=== PATIENT | female | born 1990 | race American Indian/Alaskan Native ===

== ENCOUNTER 2017-01-08 04:13 | Emergency (ER) | payer SELFPAY ==
[2017-01-08] MEDS ORDERED: REGLAN IV ONE (07:35)
--- NOTE | 2017-01-08 07:35 | Emergency Department Report ---
ED Headache HPI - General Chief Complaint: Headache Stated Complaint: HEADACHE, FEVER Time Seen by Provider: 01/08/17 07:20 - History of Present Illness Initial Comments: 26-year-old female past medical history sickle cell disease, chronic migraines presents with complaint of 2 days of anterior throbbing headache. Patient denies any fevers no neck rigidity no nausea. States that she typically gets slight photophobia with migraine headaches. States she was previously on migraine medicine but has not had any in a long time cannot specify how much time. Patient is fully lucid and awake alert and oriented 3 not in acute distress. States her headache is currently an 8 out of 10. Denies any prodrome or aura. Denies any earache sore throat no dysuria no chest pain no palpitations no shortness of breath reported. Denies any cough. Denies any recent travel. Denies any head trauma. No recent falls or direct head contusions. Patient is lucid and cooperative during exam. States she took some Motrin last night with minimal relief of her headache Timing/Duration: waxing and waning, other (2 days) Quality: mild Head Injury Location: frontal Recent Head Trauma: no recent headache/trauma Associated Symptoms: denies symptoms Allergies/Adverse Reactions: Allergies No Known Allergies Allergy (Verified 12/11/13 10:58) Home Medications: Ambulatory Orders Cyclobenzaprine [Flexeril 10mg] 10 mg PO TID PRN #20 tablet 12/11/13 Ibuprofen [Motrin 800 MG tab] 800 mg PO Q8H PRN #30 tablet 12/11/13 HYDROcodone/APAP 5-325 [[place] 5-325 mg TAB] 1 each PO Q6HR PRN #20 tablet Metoclopramide HCl [Reglan TAB] 5 mg PO TIDAC PRN #10 tablet 01/08/17 Naproxen [Naprosyn TAB] 500 mg PO BID PRN #25 tablet 01/08/17 ED Review of Systems ROS: Stated complaint: HEADACHE, FEVER Other details as noted in HPI Constitutional: denies: chills, fever Eyes: denies: eye pain, eye discharge, vision change ENT: denies: ear pain, throat pain Respiratory: denies: cough, shortness of breath, wheezing Cardiovascular: denies: chest pain, palpitations Endocrine: no symptoms reported Gastrointestinal: denies: abdominal pain, nausea, diarrhea Genitourinary: denies: urgency, dysuria, discharge Musculoskeletal: denies: back pain, joint swelling, arthralgia Skin: denies: rash, lesions Neurological: headache. denies: weakness, paresthesias Psychiatric: denies: anxiety, depression Hematological/Lymphatic: denies: easy bleeding, easy bruising ED Past Medical Hx - Past Medical History Previous Medical History?: Yes Hx Sickle Cell Disease: Yes - Surgical History Past Surgical History?: No - Social History Smoking Status: Never Smoker Substance Use Type: None - Medications Home Medications: Home Medications Medication Instructions Recorded Confirmed Last Taken Type Cyclobenzaprine [Flexeril 10mg] 10 mg PO TID PRN #20 tablet 12/11/13 Unknown Rx Ibuprofen [Motrin 800 MG tab] 800 mg PO Q8H PRN #30 tablet 12/11/13 Unknown Rx HYDROcodone/APAP 5-325 [[place] 1 each PO Q6HR PRN #20 tablet 07/15/14 Unknown Rx 5-325 mg TAB] Metoclopramide HCl [Reglan TAB] 5 mg PO TIDAC PRN #10 tablet 01/08/17 Unknown Rx Naproxen [Naprosyn TAB] 500 mg PO BID PRN #25 tablet 01/08/17 Unknown Rx ED Physical Exam - General Limitations: No Limitations General appearance: alert, in no apparent distress - Head Head exam: Present: atraumatic, normocephalic - Eye Eye exam: Present: normal appearance, PERRL, EOMI - ENT ENT exam: Present: mucous membranes moist - Neck Neck exam: Present: normal inspection - Respiratory Respiratory exam: Present: normal lung sounds bilaterally. Absent: respiratory distress - Cardiovascular Cardiovascular Exam: Present: regular rate, normal rhythm. Absent: systolic murmur, diastolic murmur, rubs, gallop - GI/Abdominal GI/Abdominal exam: Present: soft, normal bowel sounds - Extremities Exam Extremities exam: Present: normal inspection - Back Exam Back exam: Present: normal inspection - Neurological Exam Neurological exam: Present: alert, oriented X3, CN II-XII intact - Expanded Neurological Exam Expanded Patient oriented to: Present: person, place, time Cranial nerves: EOM's Intact: Normal Cerebellar function: Finger to Nose: Normal, Heel to Gavin: Normal, Romberg: Normal Sensory exam: Upper Extremity Light Touch: Normal, Lower Extremity Light Touch: Normal Motor strength exam: RUE: 5, LUE: 5, RLE: 5, LLE: 5 DTR: bicep (R): 3+, bicep (L): 3+, tricep (R): 3+, tricep (L): 3+, knee (R): 3+ , knee (L): 3+, ankle (R): 3+, ankle (L): 3+ Best Eye Response ([place]): (4) open spontaneously Best Motor Response ([place]): (6) obeys commands Best Verbal Response ([place]): (5) oriented [place] Total: 15 - Psychiatric Psychiatric exam: Present: normal affect, normal mood - Skin Skin exam: Present: warm, dry, intact, normal color. Absent: rash ED Course Vital Signs 01/08/17 04:16 Temperature 98.8 F Pulse Rate 84 Respiratory 18 Rate Blood Pressure 118/77 O2 Sat by Pulse 98 Oximetry ED Medical Decision Making - Lab Data Result diagrams: 01/08/17 07:39 01/08/17 07:39 - Medical Decision Making A/P: Migraine headache 1-patient states she felt significant relief of headache with one dose of Reglan 2-short course when necessary naproxen and Reglan 3-follow-up with primary care and outpatient neurology 4- patient's labs and CT are unremarkable. On clinical exam has no neurological deficits cranial nerves I through XII are grossly intact Critical care attestation.: If time is entered above; I have spent that time in minutes in the direct care of this critically ill patient, excluding procedure time. ED Disposition Clinical Impression: Migraine headache Qualifiers: Migraine type: without aura Status migrainosus presence: without status migrainosus Intractability: not intractable Qualified Code(s): G43.009 - Migraine without aura, not intractable, without status migrainosus Disposition: TO HOME OR SELFCARE Is pt being admited?: No Does the pt Need Aspirin: No Condition: Stable Instructions: Migraine Headache (ED) Prescriptions: Metoclopramide HCl [Reglan TAB] 5 mg PO TIDAC PRN #10 tablet PRN Reason: Headache Naproxen [Naprosyn TAB] 500 mg PO BID PRN #25 tablet PRN Reason: Headache Referrals: NATTY DANIELS MD [Staff Physician] - 3-5 Days JASMIN PATEL MD [Referring] - 3-5 Days [facility] [Outside] - 3-5 Days Forms: Work/School Release Form(ED) Time of Disposition: 10:22
[2017-01-08 08:05] LABS: Basophils % (Auto) 1.3 % (0.0-1.8); Eosinophils % (Auto) 1.4 % (0.0-4.3); Hematocrit 38.1 % (30.3-42.9); Hemoglobin 13.4 gm/dl (10.1-14.3); Mean Corpuscular HGB Conc 35 % (30-34); Mean Corpuscular Hemoglobin 27 pg (28-32); Mean Corpuscular Volume 77 fl (79-97); Platelet Count 326 K/mm3 (140-440); Red Blood Count 4.93 M/mm3 (3.65-5.03); Red Cell Distribution Width 16.1 % (13.2-15.2); White Blood Count 9.7 K/mm3 (4.5-11.0)
[2017-01-08 08:08] LABS: Anion Gap 17 mmol/L; Blood Urea Nitrogen 7 mg/dL (7-17); Calcium 8.8 mg/dL (8.4-10.2); Carbon Dioxide 21 mmol/L (22-30); Chloride 105.1 mmol/L (98-107); Glucose 88 mg/dL (65-100); Potassium 4.1 mmol/L (3.6-5.0); Sodium 139 mmol/L (137-145)
[2017-01-08] MEDS ORDERED: TYLENOL PO ONE (09:20)
--- NOTE | 2017-01-08 09:58 | Cat Scan Report ---
CT HEAD WITHOUT CONTRAST INDICATION: Worsening headache. COMPARISON: 12/11/2013. FINDINGS: Noncontrast head CT demonstrates normal, symmetric ventricles and sulci without acute or recent infarct, hemorrhage, mass effect or midline shift. No abnormal extra-axial fluid collections. Posterior fossa structures and basilar cisterns appear within normal limits. Symmetric eye globes. Clear paranasal sinuses and mastoid air cells. Intact calvarium. Normal overlying scalp soft tissues. CONCLUSION: No acute intracranial CT abnormality, as described. Thank you for the opportunity to participate in this patient's care.
[2017-01-08 10:47] VITALS: BP 111/72
== END 2017-01-08 10:47 | disposition home or self-care (01) ==
LOC: ED 04:13
DX: G43.909 Migraine, unspecified, not intractable, without status migrainosus (principal)
CPT/HCPCS: 36415; 70450; 80048; 84703; 85025; 96374; 99284; J2765

== ENCOUNTER 2017-08-26 22:49 | Emergency (ER) | payer BC ==
[2017-08-27 00:53] LABS: Basophils # (Auto) 0.1 K/mm3 (0.0-0.1); Eosinophils # (Auto) 0.2 K/mm3 (0.0-0.4); Eosinophils % (Auto) 1.9 % (0.0-4.3); Hematocrit 36.5 % (30.3-42.9); Hemoglobin 12.4 gm/dl (10.1-14.3); Lymphocytes # (Auto) 3.3 K/mm3 (1.2-5.4); Lymphocytes % (Auto) 28.7 % (13.4-35.0); Mean Corpuscular HGB Conc 34 % (30-34); Mean Corpuscular Hemoglobin 27 pg (28-32); Mean Corpuscular Volume 78 fl (79-97); Monocytes # (Auto) 0.8 K/mm3 (0.0-0.8); Monocytes % (Auto) 7.3 % (0.0-7.3); Platelet Count 344 K/mm3 (140-440); Red Blood Count 4.67 M/mm3 (3.65-5.03); Red Cell Distribution Width 16.3 % (13.2-15.2)
[2017-08-27] MEDS ORDERED: D5NS 0.2% 1,000 ML IV SCH (01:00)
[2017-08-27 01:59] LABS: BUN/Creatinine Ratio 25; Blood Urea Nitrogen 10 mg/dL (7-17); Calcium 9.3 mg/dL (8.4-10.2); Hemolysis Index 37
[2017-08-27] MEDS ORDERED: TORADOL IV ONE (13:00)
[2017-08-27] MEDS ORDERED: MORPHINE IV ONE (13:00)
[2017-08-27] MEDS ORDERED: NACL 0.9% 1000 ML 1,000 ML IV ONE (13:00)
--- NOTE | 2017-08-27 13:00 | Emergency Department Report ---
Blank Doc - Documentation Documentation: Patient is a 27-year-old female past medical history of sickle cell disease who is coming in with sickle cell crisis. Patient states she is certain in her joints specifically her right knee. Patient denies any trauma. Patient is here for pain control. Patient improved to the treatment area will receive 2 L of IV fluids and pain control
--- NOTE | 2017-08-27 14:28 | Emergency Department Report ---
HPI - General Chief Complaint: Sickle Cell Crisis Time Seen by Provider: 08/27/17 12:53 - HPI HPI: Patient reports that she has a flare up of sickle cell pain since Saturday which was 4 days ago. She says she is having pain all over joints. Pain is worse than left knee. Pain feels sharp and 8 out of 10 and worse with movement better with rest. Patient said Dr. Stefan Costa is her primary care doctor and she had a hi ranger operator but he doesn't take her insurance anymore so she is in the process of finding another one she takes ibuprofen and folic acid for sickle cell. She says she drinks a lot of water and she was not overexerted herself. Denies any chest pain or shortness of breath. She took ibuprofen prior to coming to the hospital ED Past Medical Hx - Past Medical History Previous Medical History?: Yes Hx Sickle Cell Disease: Yes - Surgical History Past Surgical History?: No - Family History Family history: no significant - Social History Smoking Status: Never Smoker Substance Use Type: None - Medications Home Medications: Home Medications Medication Instructions Recorded Confirmed Last Taken Type Cyclobenzaprine [Flexeril 10mg] 10 mg PO TID PRN #20 tablet 12/11/13 Unknown Rx Ibuprofen [Motrin 800 MG tab] 800 mg PO Q8H PRN #30 tablet 12/11/13 Unknown Rx HYDROcodone/APAP 5-325 [[place] 1 each PO Q6HR PRN #20 tablet 07/15/14 Unknown Rx 5-325 mg TAB] Metoclopramide HCl [Reglan TAB] 5 mg PO TIDAC PRN #10 tablet 01/08/17 Unknown Rx Naproxen [Naprosyn TAB] 500 mg PO BID PRN #25 tablet 01/08/17 Unknown Rx Ibuprofen [Motrin 800 MG tab] 800 mg PO Q6HR PRN #30 tablet 08/27/17 Unknown Rx ED Review of Systems ROS: Stated complaint: SICKLE CELL Other details as noted in HPI Comment: All other systems reviewed and negative Constitutional: no symptoms reported Respiratory: no symptoms reported Cardiovascular: denies: chest pain, palpitations, dyspnea on exertion, edema, syncope, paroxysmal nocturnal dyspnea Gastrointestinal: denies: abdominal pain, nausea, vomiting, diarrhea Genitourinary: denies: urgency, dysuria, frequency, hematuria, discharge, abnormal menses Musculoskeletal: arthralgia, myalgia. denies: back pain, joint swelling Skin: denies: rash Neurological: denies: headache, numbness, paresthesias, abnormal gait, vertigo Physical Exam - Physical Exam Vital Signs: Vital Signs 08/27/17 08/27/17 00:25 06:56 Temperature 98.2 F 97.8 F Pulse Rate 67 79 Respiratory 18 16 Rate Blood Pressure 125/70 109/67 O2 Sat by Pulse 98 100 Oximetry General: This is a 27-year-old female well-nourished well-developed in no acute distress. Physical Exam: Head: Normocephalic, atraumatic, no abrasion, no bruising and no contusion. Eyes: Biateral pupils equal and reactive to light, bilateral EOM intact.. Bilateral conjunctival and sclera without injection, normal accommodation. Mouth: Mucosa moist, no pharyngeal exudate or erythema. No peritonsillar abscesses. Uvula is midline and oral airways patent. Neck: Supple, No Cervical adenopathy, full range of motion and no C-spine tenderness. No swelling or tracheal deviation normal reflexes Cardiovascular: S1, S2. Regular rate and rhythm. No murmur. Capillary refill is less then 3 seconds. Lungs: Clear to auscultate bilaterally. No rhonchi, wheezes or rales. No chest wall tenderness. No chest contusion. No bruising to chest. MSK: Strength 5/5 in all extremities. No joint deformity or crepitus. Normal inspection. Full range of motion to all extremities. No laceration, abrasion or ecchymotic area noted. Abdomen: Non-tender to palpate in all quadrants, no guarding or rebound tenderness, positive bowel sounds in all quadrants. No CVA tenderness. No hernia, bruit or mass. No rigidity or distention. Extremities: No clubbing, cyanosis or edema. +2 pulses. No neurovascular compromise Skin: Clean, dry and intact. No rash or lesions. Neurological: GCS at 15, Pt is alert and oriented 3 speech is clear . Bilateral hand repairer auto clocks strong and equal. Normal gait. Negative Romberg and no pronator drift. Normal Reflexes. No motor or sensory deficit Back: No vertebral tenderness, no paraspinal tenderness. Ambulates without any difficulties. Psych: Normal mood and behavior` ED Course Vital Signs 08/27/17 08/27/17 00:25 06:56 Temperature 98.2 F 97.8 F Pulse Rate 67 79 Respiratory 18 16 Rate Blood Pressure 125/70 109/67 O2 Sat by Pulse 98 100 Oximetry - Reevaluation(s) Reevaluation #1: 08/27/17 14:33 Patient received IV fluid 2 L in emergency room. He received Toradol 30 mg IV and morphine 4 mg IV in emergency room. Patient said that her pain was down to 5 out of 10. She did not want any else anything else for pain. Patient says she is feeling better and requesting work excuse. ED Medical Decision Making - Lab Data Result diagrams: 08/27/17 00:41 08/27/17 00:41 Lab Results 08/27/17 08/27/17 Range/Units 00:41 00:41 WBC 11.5 H (4.5-11.0) K/mm3 RBC 4.67 (3.65-5.03) M/mm3 Hgb 12.4 (10.1-14.3) gm/dl Hct 36.5 (30.3-42.9) % MCV 78 L (79-97) fl MCH 27 L (28-32) pg MCHC 34 (30-34) % RDW 16.3 H (13.2-15.2) % Plt Count 344 (140-440) K/mm3 Lymph % (Auto) 28.7 (13.4-35.0) % [place] % (Auto) 7.3 (0.0-7.3) % Eos % (Auto) 1.9 (0.0-4.3) % Baso % (Auto) 1.0 (0.0-1.8) % Lymph # 3.3 (1.2-5.4) K/mm3 [place] # 0.8 (0.0-0.8) K/mm3 Eos # 0.2 (0.0-0.4) K/mm3 Baso # 0.1 (0.0-0.1) K/mm3 Seg Neutrophils % 61.1 (40.0-70.0) % Seg Neutrophils # 7.0 (1.8-7.7) K/mm3 Percent Retic 3.27 H (0.78-2.58) % Sodium 137 (137-145) mmol/L Potassium 4.1 (3.6-5.0) mmol/L Chloride 102.4 (98-107) mmol/L Carbon Dioxide 22 (22-30) mmol/L Anion Gap 17 mmol/L BUN 10 (7-17) mg/dL Creatinine 0.4 L (0.7-1.2) mg/dL Estimated GFR > 60 ml/min BUN/Creatinine Ratio 25 % Glucose 85 (65-100) mg/dL Calcium 9.3 (8.4-10.2) mg/dL - Medical Decision Making ED course: Patient here reported sickle cell flare that started 4 days ago. She states that she's taken ibuprofen without any relief. Patient sees Dr. Costa for primary care but she doesn't have a hi ranger operator yet. She also takes folic acid. Patient's CBC with a stable, reticular count elevated and chemistries stable with some abnormality in values which is insignificant. She received 2 L of IV fluid and emergency room along with Toradol 30 mg IV and morphine 4 mg IV which relieved her pain down to 5 out of 10. She says she is feeling a lot better. Patient will be given prescription for ibuprofen as this is on a medication that she is requesting. I will refer patient to Dr. Eduard Han who is a hi ranger operator and she is to follow-up with her primary care physician tomorrow. Critical care attestation.: If time is entered above; I have spent that time in minutes in the direct care of this critically ill patient, excluding procedure time. ED Disposition Clinical Impression: Sickle cell anemia with crisis, Arthralgia of multiple sites, bilateral Disposition: DC-01 TO HOME OR SELFCARE Is pt being admited?: No Does the pt Need Aspirin: No Condition: Stable Instructions: Sickle Cell Crisis (ED), Arthralgia (ED) Additional Instructions: Please take Motrin as prescribed for pain Ensure that you keep hydrated to prevent any recurrence of crisis call Dr. Costa and schedule an appointment for follow-up. SEE referral for hi ranger operator. Prescriptions: Ibuprofen [Motrin 800 MG tab] 800 mg PO Q6HR PRN #30 tablet PRN Reason: take for sickle cell pain Referrals: STEFAN COSTA MD [Staff Physician] - 08/29/17 CARLA HAN MD [Staff Physician] - 3-5 Days Forms: Work/School Release Form(ED)
[2017-08-27 15:01] VITALS: BP 127/84
== END 2017-08-27 15:01 | disposition home or self-care (01) ==
LOC: ED 22:49
DX: D57.00 Hb-SS disease with crisis, unspecified (principal)
CPT/HCPCS: 36415; 80048; 85025; 85045; 96361; 96374; 96375; 99283; J1885; J2270; J7030

== ENCOUNTER 2018-09-25 10:52 | Emergency (ER) | payer BC ==
--- NOTE | 2018-09-25 11:07 | Emergency Department Report ---
Blank Doc - Documentation Documentation: This is a 28-year-old female that presents with sickle cell crisis with c/o ge neralized pain. This initial assessment/diagnostic orders/clinical plan/treatment(s) is/are subject to change based on patient's health status, clinical progression and re- assessment by fellow clinical providers in the ED. Further treatment and workup at subsequent clinical providers discretion. Patient/guardians urged not to elope from the ED as their condition may be serious if not clinically assessed and managed. Initial orders include: 1- Patient sent to MAIN ED for further evaluation and treatment 2- labs
[2018-09-25 11:22] LABS: Basophils # (Auto) 0.1 K/mm3 (0.0-0.1); Eosinophils # (Auto) 0.2 K/mm3 (0.0-0.4); Eosinophils % (Auto) 1.8 % (0.0-4.3); Hematocrit 39.3 % (30.3-42.9); Hemoglobin 13.9 gm/dl (10.1-14.3); Lymphocytes # (Auto) 2.5 K/mm3 (1.2-5.4); Lymphocytes % (Auto) 28.5 % (13.4-35.0); Mean Corpuscular HGB Conc 35 % (30-34); Mean Corpuscular Volume 76 fl (79-97); Monocytes # (Auto) 0.7 K/mm3 (0.0-0.8); Monocytes % (Auto) 7.5 % (0.0-7.3); Platelet Count 371 K/mm3 (140-440); Red Blood Count 5.21 M/mm3 (3.65-5.03); Red Cell Distribution Width 17.1 % (13.2-15.2)
[2018-09-25 11:41] LABS: BUN/Creatinine Ratio 20; Blood Urea Nitrogen 8 mg/dL (7-17); Calcium 9.1 mg/dL (8.4-10.2); Hemolysis Index 16
[2018-09-25] MEDS ORDERED: MORPHINE IV ONE ×2 (12:01→14:39)
[2018-09-25] MEDS ORDERED: NACL 0.9% 1000 ML 1,000 ML IV ONE (12:01)
[2018-09-25] MEDS ORDERED: TORADOL IVP ONE (12:01)
[2018-09-25] MEDS ORDERED: ZOFRAN IV ONE (12:01)
[2018-09-25 12:42] LABS: INR 0.87 (0.87-1.13)
[2018-09-25 12:43] LABS: Partial Thromboplastin Time 21.1 Sec. (24.2-36.6)
--- NOTE | 2018-09-25 12:43 | Emergency Department Report ---
ED General Adult HPI - General Chief complaint: Sickle Cell Crisis Stated complaint: SICKLE CELL CRISIS Time Seen by Provider: 09/25/18 11:05 Source: patient Mode of arrival: Ambulatory Limitations: No Limitations - History of Present Illness Initial comments: Patient presents to emergency department for sickle cell crisis. Patient states that she has had pain since Saturday. Patient states the pain is throughout her whole body and consistent with prior sickle cell crisis. Patient states she's been taking Motrin at home with no relief -: Gradual Severity scale (0 -10): 10 Quality: sharp Consistency: constant Improves with: none Worsens with: none Associated Symptoms: denies other symptoms Treatments Prior to Arrival: none - Related Data Previous Rx's Medication Instructions Recorded Last Taken Type Cyclobenzaprine [Flexeril 10mg] 10 mg PO TID PRN #20 tablet 12/11/13 Unknown Rx Ibuprofen [Motrin 800 MG tab] 800 mg PO Q8H PRN #30 tablet 12/11/13 Unknown Rx HYDROcodone/APAP 5-325 [[place] 1 each PO Q6HR PRN #20 tablet 07/15/14 Unknown Rx 5-325 mg TAB] Metoclopramide HCl [Reglan TAB] 5 mg PO TIDAC PRN #10 tablet 01/08/17 Unknown Rx Naproxen [Naprosyn TAB] 500 mg PO BID PRN #25 tablet 01/08/17 Unknown Rx Ibuprofen [Motrin 800 MG tab] 800 mg PO Q6HR PRN #30 tablet 08/27/17 Unknown Rx Ciprofloxacin HCl [Ciprofloxacin 500 mg PO Q12HR #20 tab 06/14/18 Unknown Rx TAB] Ibuprofen [Motrin] 800 mg PO Q8HR PRN #20 tablet 06/14/18 Unknown Rx Tramadol HCl [Ultram] 50 mg PO BID PRN #10 tablet 06/14/18 Unknown Rx HYDROcodone/APAP 7.5-325 [[place] 1 each PO Q6HR PRN #15 tablet 09/25/18 Unknown Rx 7.5/325] Ketorolac [Toradol] 10 mg PO Q6H PRN #20 tablet 09/25/18 Unknown Rx Allergies Allergy/AdvReac Type Severity Reaction Status Date / Time No Known Allergies Allergy Verified 12/11/13 10:58 ED Review of Systems ROS: Stated complaint: SICKLE CELL CRISIS Other details as noted in HPI Comment: All other systems reviewed and negative Constitutional: denies: chills, fever Eyes: denies: eye pain, eye discharge, vision change ENT: denies: ear pain, throat pain Respiratory: denies: cough, shortness of breath, wheezing Cardiovascular: denies: chest pain, palpitations Endocrine: no symptoms reported Gastrointestinal: denies: abdominal pain, nausea, diarrhea Genitourinary: denies: urgency, dysuria, discharge Musculoskeletal: denies: back pain, joint swelling, arthralgia Skin: denies: rash, lesions Neurological: denies: headache, weakness, paresthesias Psychiatric: denies: anxiety, depression Hematological/Lymphatic: denies: easy bleeding, easy bruising ED Past Medical Hx - Past Medical History Previous Medical History?: Yes Hx Sickle Cell Disease: Yes Additional medical history: Sickle cell anemia - Surgical History Past Surgical History?: No - Social History Smoking Status: Never Smoker Substance Use Type: None - Medications Home Medications: Home Medications Medication Instructions Recorded Confirmed Last Taken Type Cyclobenzaprine [Flexeril 10mg] 10 mg PO TID PRN #20 tablet 12/11/13 Unknown Rx Ibuprofen [Motrin 800 MG tab] 800 mg PO Q8H PRN #30 tablet 12/11/13 Unknown Rx HYDROcodone/APAP 5-325 [[place] 1 each PO Q6HR PRN #20 tablet 07/15/14 Unknown Rx 5-325 mg TAB] Metoclopramide HCl [Reglan TAB] 5 mg PO TIDAC PRN #10 tablet 01/08/17 Unknown Rx Naproxen [Naprosyn TAB] 500 mg PO BID PRN #25 tablet 01/08/17 Unknown Rx Ibuprofen [Motrin 800 MG tab] 800 mg PO Q6HR PRN #30 tablet 08/27/17 Unknown Rx Ciprofloxacin HCl [Ciprofloxacin 500 mg PO Q12HR #20 tab 06/14/18 Unknown Rx TAB] Ibuprofen [Motrin] 800 mg PO Q8HR PRN #20 tablet 06/14/18 Unknown Rx Tramadol HCl [Ultram] 50 mg PO BID PRN #10 tablet 06/14/18 Unknown Rx HYDROcodone/APAP 7.5-325 [[place] 1 each PO Q6HR PRN #15 tablet 09/25/18 Unknown Rx 7.5/325] Ketorolac [Toradol] 10 mg PO Q6H PRN #20 tablet 09/25/18 Unknown Rx ED Physical Exam - General Limitations: No Limitations General appearance: alert, in no apparent distress - Head Head exam: Present: atraumatic, normocephalic - Eye Eye exam: Present: normal appearance, PERRL, EOMI - ENT ENT exam: Present: mucous membranes dry - Neck Neck exam: Present: normal inspection - Respiratory Respiratory exam: Present: normal lung sounds bilaterally. Absent: respiratory distress, wheezes, rales - Cardiovascular Cardiovascular Exam: Present: regular rate, normal rhythm. Absent: systolic murmur, diastolic murmur, rubs, gallop - GI/Abdominal GI/Abdominal exam: Present: soft, normal bowel sounds. Absent: distended, ten derness - Extremities Exam Extremities exam: Present: normal inspection - Back Exam Back exam: Present: normal inspection - Neurological Exam Neurological exam: Present: alert, oriented X3, CN II-XII intact. Absent: motor sensory deficit - Psychiatric Psychiatric exam: Present: normal affect, normal mood - Skin Skin exam: Present: warm, dry, intact, normal color. Absent: rash ED Course Vital Signs 09/25/18 09/25/18 09/25/18 11:01 11:58 12:00 Temperature 97.9 F Pulse Rate 75 68 65 Respiratory 16 18 9 L Rate Blood Pressure 131/77 123/64 O2 Sat by Pulse 95 99 Oximetry 09/25/18 09/25/18 09/25/18 12:15 12:16 12:30 Temperature Pulse Rate 71 76 Respiratory 19 16 21 Rate Blood Pressure 129/69 O2 Sat by Pulse 99 99 Oximetry 09/25/18 09/25/18 12:45 13:00 Temperature Pulse Rate 64 66 Respiratory 12 13 Rate Blood Pressure 102/65 106/88 O2 Sat by Pulse 100 100 Oximetry ED Medical Decision Making - Lab Data Result diagrams: 09/25/18 11:11 09/25/18 12:17 Lab Results 09/25/18 09/25/18 09/25/18 Range/Units 11:11 11:11 11:11 WBC 8.9 (4.5-11.0) K/mm3 RBC 5.21 H (3.65-5.03) M/mm3 Hgb 13.9 (10.1-14.3) gm/dl Hct 39.3 (30.3-42.9) % MCV 76 L (79-97) fl MCH 27 L (28-32) pg MCHC 35 H (30-34) % RDW 17.1 H (13.2-15.2) % Plt Count 371 (140-440) K/mm3 Lymph % (Auto) 28.5 (13.4-35.0) % [place] % (Auto) 7.5 H (0.0-7.3) % Eos % (Auto) 1.8 (0.0-4.3) % Baso % (Auto) 1.0 (0.0-1.8) % Lymph # 2.5 (1.2-5.4) K/mm3 [place] # 0.7 (0.0-0.8) K/mm3 Eos # 0.2 (0.0-0.4) K/mm3 Baso # 0.1 (0.0-0.1) K/mm3 Seg Neutrophils % 61.2 (40.0-70.0) % Seg Neutrophils # 5.4 (1.8-7.7) K/mm3 Percent Retic 2.95 H (0.78-2.58) % PT (12.2-14.9) Sec. INR (0.87-1.13) APTT (24.2-36.6) Sec. Sodium 140 (137-145) mmol/L Potassium 4.3 (3.6-5.0) mmol/L Chloride 106.1 (98-107) mmol/L Carbon Dioxide 22 (22-30) mmol/L Anion Gap 16 mmol/L BUN 8 (7-17) mg/dL Creatinine 0.4 L (0.7-1.2) mg/dL Estimated GFR > 60 ml/min BUN/Creatinine Ratio 20 % Glucose 93 (65-100) mg/dL Calcium 9.1 (8.4-10.2) mg/dL Total Bilirubin (0.1-1.2) mg/dL AST (5-40) units/L ALT (7-56) units/L Alkaline Phosphatase (35-129) units/L Lactate Dehydrogenase (91-180) units/L Total Protein (6.3-8.2) g/dL Albumin (3.9-5) g/dL Albumin/Globulin Ratio % HCG, Qual Negative (Negative) 09/25/18 09/25/18 Range/Units 12:17 12:17 WBC (4.5-11.0) K/mm3 RBC (3.65-5.03) M/mm3 Hgb (10.1-14.3) gm/dl Hct (30.3-42.9) % MCV (79-97) fl MCH (28-32) pg MCHC (30-34) % RDW (13.2-15.2) % Plt Count (140-440) K/mm3 Lymph % (Auto) (13.4-35.0) % [place] % (Auto) (0.0-7.3) % Eos % (Auto) (0.0-4.3) % Baso % (Auto) (0.0-1.8) % Lymph # (1.2-5.4) K/mm3 [place] # (0.0-0.8) K/mm3 Eos # (0.0-0.4) K/mm3 Baso # (0.0-0.1) K/mm3 Seg Neutrophils % (40.0-70.0) % Seg Neutrophils # (1.8-7.7) K/mm3 Percent Retic (0.78-2.58) % PT 12.4 (12.2-14.9) Sec. INR 0.87 (0.87-1.13) APTT 21.1 L (24.2-36.6) Sec. Sodium 144 (137-145) mmol/L Potassium 4.6 (3.6-5.0) mmol/L Chloride 109.6 H (98-107) mmol/L Carbon Dioxide 18 L (22-30) mmol/L Anion Gap 21 mmol/L BUN 8 (7-17) mg/dL Creatinine 0.4 L (0.7-1.2) mg/dL Estimated GFR > 60 ml/min BUN/Creatinine Ratio 20 % Glucose 93 (65-100) mg/dL Calcium 9.5 (8.4-10.2) mg/dL Total Bilirubin 1.30 H (0.1-1.2) mg/dL AST 24 (5-40) units/L ALT 24 (7-56) units/L Alkaline Phosphatase 61 (35-129) units/L Lactate Dehydrogenase 269 H (91-180) units/L Total Protein 7.1 (6.3-8.2) g/dL Albumin 4.4 (3.9-5) g/dL Albumin/Globulin Ratio 1.6 % HCG, Qual (Negative) - Radiology Data Radiology results: report reviewed - Medical Decision Making Patient symptoms improved with pain medication and fluids Laboratory values and imaging discussed with the patient Critical care attestation.: If time is entered above; I have spent that time in minutes in the direct care of this critically ill patient, excluding procedure time. ED Disposition Clinical Impression: Sickle cell crisis Disposition: TO HOME OR SELFCARE Is pt being admited?: No Does the pt Need Aspirin: No Condition: Stable Instructions: Sickle Cell Crisis (ED) Additional Instructions: return if worse Prescriptions: HYDROcodone/APAP 7.5-325 [[place] 7.5/325] 1 each PO Q6HR PRN #15 tablet PRN Reason: Pain Ketorolac [Toradol] 10 mg PO Q6H PRN #20 tablet PRN Reason: Pain Referrals: PRIMARY CARE, [Primary Care Provider] - 3-5 Days [facility] [Outside] - 3-5 Days [facility] [Provider Group] - 3-5 Days [facility] [Provider Group] - 3-5 Days Forms: Work/School Release Form(ED) Time of Disposition: 14:49
--- NOTE | 2018-09-25 13:29 | XRay Report ---
AP CHEST: HISTORY: Cough AP view of the chest demonstrates a normal mediastinal and cardiac contour with clear lungs and normal bony and soft tissue structures. IMPRESSION: Unremarkable AP chest.
[2018-09-25 13:47] LABS: Alanine Aminotransferase 24 units/L (7-56); Albumin 4.4 g/dL (3.9-5); BUN/Creatinine Ratio 20; Blood Urea Nitrogen 8 mg/dL (7-17); Calcium 9.5 mg/dL (8.4-10.2); Hemolysis Index 17
[2018-09-25 15:36] VITALS: BP 108/66
== END 2018-09-25 15:16 | disposition home or self-care (01) ==
LOC: ED 10:52
DX: D57.00 Hb-SS disease with crisis, unspecified (principal)
CPT/HCPCS: 36415; 71045; 80048; 80053; 83615; 84703; 85025; 85045; 85610; 85730; 96374; 96375; 96376; 99284; J1885; J2270; J2405; J7030

== ENCOUNTER 2018-11-02 14:59 | Emergency (ER) | payer BC ==
--- NOTE | 2018-11-02 15:18 | Emergency Department Report ---
Chief Complaint: Chest Pain Stated Complaint: CHEST PAIN Time Seen by Provider: 11/02/18 15:14 - HPI History of Present Illness: This is a 28 y.o. F. that presents to the ER with chest pain since starting adipex 3 weeks ago. Patient states she was prescribed adipex by a weight lost clinic. Denies palpitations, SOB, dizzines, or headache. - Exam Vital Signs: Vital Signs 11/02/18 15:03 Temperature 98.2 F Pulse Rate 80 Respiratory 18 Rate Blood Pressure 142/85 MSE screening note: Focused history and physical exam performed. Due to findings the following was ordered: CXR and EKG ED Disposition for MSE Condition: Stable
--- NOTE | 2018-11-02 16:18 | XRay Report ---
PROCEDURE: XR CHEST 1V AP TECHNIQUE: Chest radiograph single view. HISTORY: Chest Pain COMPARISONS: 06/14/2018 . FINDINGS: Heart: Normal. Mediastinum/Vessels: Normal. Lungs/Pleural space: No infiltrate, effusion, or pneumothorax. Bony thorax: No acute osseous abnormality. Life support devices: None. IMPRESSION: No radiographic evidence of acute cardiopulmonary abnormality. This document is electronically signed by Sully Veloz MD., Nov 02 2018 04:16:29 PM ET
--- NOTE | 2018-11-02 17:01 | Emergency Department Report ---
HPI - General Chief Complaint: Chest Pain Time Seen by Provider: 11/02/18 15:14 - HPI HPI: Patient is a 28-year-old female presents to ED complaining of the gastric discomfort intermittently for the past 2 weeks. Patient states that about 3 weeks ago she started taking Adipex. She denies chest pain, fever,chills, n,v,d, sob and any other complains ED Past Medical Hx - Past Medical History Previous Medical History?: Yes Hx Sickle Cell Disease: Yes Additional medical history: Sickle cell anemia - Surgical History Past Surgical History?: No - Social History Smoking Status: Never Smoker Substance Use Type: None - Medications Home Medications: Home Medications Medication Instructions Recorded Confirmed Last Taken Type Cyclobenzaprine [Flexeril 10mg] 10 mg PO TID PRN #20 tablet 12/11/13 Unknown Rx Ibuprofen [Motrin 800 MG tab] 800 mg PO Q8H PRN #30 tablet 12/11/13 Unknown Rx HYDROcodone/APAP 5-325 [[place] 1 each PO Q6HR PRN #20 tablet 07/15/14 Unknown Rx 5-325 mg TAB] Metoclopramide HCl [Reglan TAB] 5 mg PO TIDAC PRN #10 tablet 01/08/17 Unknown Rx Naproxen [Naprosyn TAB] 500 mg PO BID PRN #25 tablet 01/08/17 Unknown Rx Ibuprofen [Motrin 800 MG tab] 800 mg PO Q6HR PRN #30 tablet 08/27/17 Unknown Rx Ciprofloxacin HCl [Ciprofloxacin 500 mg PO Q12HR #20 tab 06/14/18 Unknown Rx TAB] Ibuprofen [Motrin] 800 mg PO Q8HR PRN #20 tablet 06/14/18 Unknown Rx Tramadol HCl [Ultram] 50 mg PO BID PRN #10 tablet 06/14/18 Unknown Rx HYDROcodone/APAP 7.5-325 [[place] 1 each PO Q6HR PRN #15 tablet 09/25/18 Unknown Rx 7.5/325] Ketorolac [Toradol] 10 mg PO Q6H PRN #20 tablet 09/25/18 Unknown Rx Dicyclomine [Bentyl] 10 mg PO BID #20 capsule 11/02/18 Unknown Rx Famotidine [Pepcid] 20 mg PO BID #30 tablet 11/02/18 Unknown Rx ED Review of Systems ROS: Stated complaint: CHEST PAIN Other details as noted in HPI Comment: All other systems reviewed and negative Physical Exam - Physical Exam Vital Signs: Vital Signs 11/02/18 15:03 Temperature 98.2 F Pulse Rate 80 Respiratory 18 Rate Blood Pressure 142/85 Physical Exam: - General Limitations: No Limitations General appearance: alert, in no apparent distress - Respiratory Respiratory exam: Present: normal lung sounds bilaterally. Absent: respiratory distress, wheezes, chest wall tenderness - Cardiovascular Cardiovascular Exam: Present: regular rate, tachycardia. Absent: systolic murmur, diastolic murmur, rubs, gallop - GI/Abdominal GI/Abdominal exam: Present: soft, normal bowel sounds. Absent: distended, tenderness, guarding, mass - Skin Skin exam: Present: warm, dry, intact, normal color. Absent: rash ED Course Vital Signs 11/02/18 15:03 Temperature 98.2 F Pulse Rate 80 Respiratory 18 Rate Blood Pressure 142/85 ED Medical Decision Making - Radiology Data Radiology results: report reviewed, image reviewed TECHNIQUE: Chest radiograph single view. HISTORY: Chest Pain COMPARISONS: 06/14/2018 . FINDINGS: Heart: Normal. Mediastinum/Vessels: Normal. Lungs/Pleural space: No infiltrate, effusion, or pneumothorax. Bony thorax: No acute osseous abnormality. Life support devices: None. IMPRESSION: No radiographic evidence of acute cardiopulmonary abnormality. This document is electronically signed by Sully Veloz MD., Nov 02 2018 04:16:29 PM ET Transcribed By: [facility] Dictated By: SULLY VELOZ M.D. Electronically Authenticated By: SULLY VELOZ M.D. Signed Date/Time: 11/02/18 1618 - Medical Decision Making 28 y o female presents with gastritis pt is in no acute distress Discussed f/u with pco [facility] , pt understands all instructions given. Critical care attestation.: If time is entered above; I have spent that time in minutes in the direct care of this critically ill patient, excluding procedure time. ED Disposition Clinical Impression: Gastritis Disposition: DC-01 TO HOME OR SELFCARE Is pt being admited?: No Does the pt Need Aspirin: No Condition: Stable Instructions: Gastritis (ED) Additional Instructions: Make sure to follow up with the primary care physician as discussed. Take all your medications as you've been prescribed. If you have any worsening symptoms or develop new symptoms please return to ED immediately. Prescriptions: Dicyclomine [Bentyl] 10 mg PO BID #20 capsule Famotidine [Pepcid] 20 mg PO BID #30 tablet Referrals: [facility] [Provider Group] - 3-5 Days Forms: Accompanied Note, Work/School Release Form(ED) Time of Disposition: 18:15
[2018-11-02] MEDS ORDERED: LIDOCAINE VISCOUS 2% PO ONE (17:08)
[2018-11-02] MEDS ORDERED: ALUM-MAG HYDROX-SIMETH 200-200-20MG/5ML PO ONE (17:08)
[2018-11-02] MEDS ORDERED: BENTYL PO ONE (18:00)
[2018-11-02 18:33] VITALS: BP 150/86
== END 2018-11-02 18:31 | disposition home or self-care (01) ==
LOC: ED 14:59
DX: K29.70 Gastritis, unspecified, without bleeding (principal); D57.1 Sickle-cell disease without crisis
CPT/HCPCS: 71045; 93005; 93010; 99283

== ENCOUNTER 2019-01-16 01:34 | Emergency (ER) | payer BC ==
[2019-01-16 01:52] VITALS: BP 120/76
[2019-01-16] MEDS ORDERED: IBUPROFEN PO ONE (02:44)
[2019-01-16] MEDS ORDERED: KEFLEX PO ONE (02:44)
--- NOTE | 2019-01-16 02:55 | Emergency Department Report ---
Abscess Boil HPI - HPI Chief Complaint: Skin/Abscess/Foreign Body Stated Complaint: INSECT BITE Time Seen by Provider: 01/16/19 02:40 Location: Lower Extremity Severity: Mild History: Yes Pain, Yes Purulent Drainage (L), No Fever, No Numbness, No Foreign Body, No Previous History, No Insect Bite HPI: insect bites to bilat lower exterm with bilat small blister, no fever or chills no n/v Home Medications: Previous Rx's Medication Instructions Recorded Last Taken Type Cyclobenzaprine [Flexeril 10mg] 10 mg PO TID PRN #20 tablet 12/11/13 Unknown Rx Ibuprofen [Motrin 800 MG tab] 800 mg PO Q8H PRN #30 tablet 12/11/13 Unknown Rx HYDROcodone/APAP 5-325 [[place] 1 each PO Q6HR PRN #20 tablet 07/15/14 Unknown Rx 5-325 mg TAB] Metoclopramide HCl [Reglan TAB] 5 mg PO TIDAC PRN #10 tablet 01/08/17 Unknown Rx Naproxen [Naprosyn TAB] 500 mg PO BID PRN #25 tablet 01/08/17 Unknown Rx Ibuprofen [Motrin 800 MG tab] 800 mg PO Q6HR PRN #30 tablet 08/27/17 Unknown Rx Ciprofloxacin HCl [Ciprofloxacin 500 mg PO Q12HR #20 tab 06/14/18 Unknown Rx TAB] Ibuprofen [Motrin] 800 mg PO Q8HR PRN #20 tablet 06/14/18 Unknown Rx Tramadol HCl [Ultram] 50 mg PO BID PRN #10 tablet 06/14/18 Unknown Rx HYDROcodone/APAP 7.5-325 [[place] 1 each PO Q6HR PRN #15 tablet 09/25/18 Unknown Rx 7.5/325] Ketorolac [Toradol] 10 mg PO Q6H PRN #20 tablet 09/25/18 Unknown Rx Dicyclomine [Bentyl] 10 mg PO BID #20 capsule 11/02/18 Unknown Rx Famotidine [Pepcid] 20 mg PO BID #30 tablet 11/02/18 Unknown Rx Ibuprofen [Motrin 800 MG tab] 800 mg PO Q8HR PRN #30 tablet 01/16/19 Unknown Rx cephALEXin [Keflex] 500 mg PO Q8HR 10 Days #30 cap 01/16/19 Unknown Rx Allergies/Adverse Reactions: Allergies Allergy/AdvReac Type Severity Reaction Status Date / Time No Known Allergies Allergy Verified 12/11/13 10:58 ED Review of Systems ROS: Stated complaint: INSECT BITE Other details as noted in HPI Constitutional: denies: chills, fever Eyes: denies: eye pain, eye discharge, vision change ENT: denies: ear pain, throat pain Respiratory: denies: cough, shortness of breath, wheezing Cardiovascular: denies: chest pain, palpitations Endocrine: no symptoms reported Gastrointestinal: denies: abdominal pain, nausea, diarrhea Genitourinary: denies: urgency, dysuria, discharge Musculoskeletal: denies: back pain, joint swelling, arthralgia Skin: lesions (bilat le ). denies: rash Neurological: denies: headache, weakness, paresthesias Psychiatric: denies: anxiety, depression Hematological/Lymphatic: denies: easy bleeding, easy bruising ED Past Medical Hx - Past Medical History Previous Medical History?: Yes Hx Sickle Cell Disease: Yes Additional medical history: Sickle cell anemia - Surgical History Past Surgical History?: No - Social History Smoking Status: Never Smoker Substance Use Type: None - Medications Home Medications: Home Medications Medication Instructions Recorded Confirmed Last Taken Type Cyclobenzaprine [Flexeril 10mg] 10 mg PO TID PRN #20 tablet 12/11/13 Unknown Rx Ibuprofen [Motrin 800 MG tab] 800 mg PO Q8H PRN #30 tablet 12/11/13 Unknown Rx HYDROcodone/APAP 5-325 [[place] 1 each PO Q6HR PRN #20 tablet 07/15/14 Unknown Rx 5-325 mg TAB] Metoclopramide HCl [Reglan TAB] 5 mg PO TIDAC PRN #10 tablet 01/08/17 Unknown Rx Naproxen [Naprosyn TAB] 500 mg PO BID PRN #25 tablet 01/08/17 Unknown Rx Ibuprofen [Motrin 800 MG tab] 800 mg PO Q6HR PRN #30 tablet 08/27/17 Unknown Rx Ciprofloxacin HCl [Ciprofloxacin 500 mg PO Q12HR #20 tab 06/14/18 Unknown Rx TAB] Ibuprofen [Motrin] 800 mg PO Q8HR PRN #20 tablet 06/14/18 Unknown Rx Tramadol HCl [Ultram] 50 mg PO BID PRN #10 tablet 06/14/18 Unknown Rx HYDROcodone/APAP 7.5-325 [[place] 1 each PO Q6HR PRN #15 tablet 09/25/18 Unknown Rx 7.5/325] Ketorolac [Toradol] 10 mg PO Q6H PRN #20 tablet 09/25/18 Unknown Rx Dicyclomine [Bentyl] 10 mg PO BID #20 capsule 11/02/18 Unknown Rx Famotidine [Pepcid] 20 mg PO BID #30 tablet 11/02/18 Unknown Rx Ibuprofen [Motrin 800 MG tab] 800 mg PO Q8HR PRN #30 tablet 01/16/19 Unknown Rx cephALEXin [Keflex] 500 mg PO Q8HR 10 Days #30 cap 01/16/19 Unknown Rx ED Abscess Boil Physical Exam - Exam General: Vital signs noted. No distress. Alert and acting appropriately. Size: 1 cm Exam: Yes Tenderness, Yes Surrounding Cellulites/Erythema, Yes Normal Neurologic Exam, Yes Normal Circulation, No Fluctuance, No Lymphangitis, No Crepitation, No Heart Murmur I & D Note - I & D Note I & D Note: small blisters dressing 4x4 x 2 scant drainage. no fever , pt ginven wound care instructions pt verbalized agreement and understandig of same. ED Course Vital Signs 01/16/19 01:45 Temperature 97.6 F Pulse Rate 68 Respiratory 18 Rate Blood Pressure 120/76 O2 Sat by Pulse 97 Oximetry Critical care attestation.: If time is entered above; I have spent that time in minutes in the direct care of this critically ill patient, excluding procedure time. ED Medical Decision Making - Medical Decision Making this is an infected insect bite x 2 , plan, keflex, ibuprofen, benadryl follow up with pcp in 2-3, wound care as directed , soap and water and bandaid. ED Disposition Clinical Impression: Infected insect bite Qualifiers: Encounter type: initial encounter Qualified Code(s): W57.XXXA - Bitten or stung by nonvenomous insect and other nonvenomous arthropods, initial encounter Cellulitis Qualifiers: Site of cellulitis: extremity Site of cellulitis of extremity: lower extremity Laterality: unspecified laterality Qualified Code(s): L03.119 - Cellulitis of un specified part of limb Disposition: DC- TO HOME OR SELFCARE Is pt being admited?: No Does the pt Need Aspirin: No Condition: Stable Instructions: Cellulitis (ED) Prescriptions: cephALEXin [Keflex] 500 mg PO Q8HR 10 Days #30 cap Ibuprofen [Motrin 800 MG tab] 800 mg PO Q8HR PRN #30 tablet PRN Reason: Pain , Severe (7-10) Referrals: ARTHUR CHAND MD [Primary Care Provider] - 3-5 Days Forms: Work/School Release Form(ED) Time of Disposition: 02:57
== END 2019-01-16 03:35 | disposition home or self-care (01) ==
LOC: ED 01:34
DX: S80.862A Insect bite (nonvenomous), left lower leg, initial encounter (principal); S80.861A Insect bite (nonvenomous), right lower leg, initial encounter; L03.116 Cellulitis of left lower limb; L03.115 Cellulitis of right lower limb; Z79.899 Other long term (current) drug therapy; W57.XXXA Bitten or stung by nonvenomous insect and other nonvenomous arthropods, initial encounter; Y93.89 Activity, other specified; Y92.89 Other specified places as the place of occurrence of the external cause; Y99.8 Other external cause status
CPT/HCPCS: 99282; 99283

== ENCOUNTER 2019-02-06 00:37 | Emergency (ER) | payer BC, OTHER ==
[2019-02-06 00:43] VITALS: BP 108/68
[2019-02-06] MEDS ORDERED: TORADOL IM ONE (02:09)
[2019-02-06] MEDS ORDERED: FLEXERIL PO ONE (02:09)
[2019-02-06] MEDS ORDERED: DELTASONE PO ONE (02:09)
--- NOTE | 2019-02-06 02:20 | XRay Report ---
CERVICAL SPINE 3 VIEWS. INDICATION / CLINICAL INFORMATION: neck pain' COMPARISON: None available. FINDINGS: BONES / JOINT(S): No acute fracture or subluxation. No significant arthritis. SOFT TISSUES: No significant abnormality. ADDITIONAL FINDINGS: None. Signer Name: Cameron Raya MD Signed: 02/06/2019 2:16 AM Workstation Name: [id number]
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
== END 2019-02-06 03:25 | disposition home or self-care (01) ==
LOC: ED 00:37
DX: S16.1XXA Strain of muscle, fascia and tendon at neck level, initial encounter (principal); D57.1 Sickle-cell disease without crisis; Z79.899 Other long term (current) drug therapy; V89.2XXA Person injured in unspecified motor-vehicle accident, traffic, initial encounter; Y93.89 Activity, other specified; Y92.410 Unspecified street and highway as the place of occurrence of the external cause; Y99.8 Other external cause status
CPT/HCPCS: 72040; 96372; 99283; J1885; J7512

== ENCOUNTER 2019-06-19 03:30 | Emergency (ER) | payer SELFPAY ==
[2019-06-19] MEDS ORDERED: HYDROmorphone 1 MG/1 ML INJ IV ONE (04:17)
[2019-06-19] MEDS ORDERED: KETOROLAC 30 MG/1 ML INJ IV ONE (04:17)
[2019-06-19] MEDS ORDERED: ONDANSETRON 4 MG/2 ML INJ IV ONE (04:17)
[2019-06-19] MEDS ORDERED: diphenhydrAMINE 50 MG/ML VIAL IV ONE (04:17)
[2019-06-19 04:50] LABS: Hematocrit 35.2 % (30.3-42.9); Hemoglobin 12.3 gm/dl (10.1-14.3); Mean Corpuscular HGB Conc 35 % (30-34); Mean Corpuscular Volume 71 fl (79-97); Platelet Count 335 K/mm3 (140-440); Red Blood Count 4.93 M/mm3 (3.65-5.03); Red Cell Distribution Width 18.8 % (13.2-15.2)
[2019-06-19] MEDS ORDERED: D5W/0.2% NACL 1,000 ML IV SCH (05:00)
[2019-06-19 05:12] LABS: Alanine Aminotransferase 24 units/L (7-56); Albumin 3.9 g/dL (3.9-5); BUN/Creatinine Ratio 23; Blood Urea Nitrogen 9 mg/dL (7-17); Hemolysis Index 4
--- NOTE | 2019-06-19 05:43 | XRay Report ---
CHEST 1 VIEW, 06/19/2019 5:06 AM CLINICAL INFORMATION/INDICATION: Chest pain COMPARISON: Chest radiograph, 11/02/2018 FINDINGS: SUPPORT DEVICES: None. HEART: The cardiac silhouette is normal in size. LUNGS/PLEURA: There are small bilateral pleural effusions, left greater than right. ADDITIONAL FINDINGS: No additional acute findings. IMPRESSION: 1. Small bilateral pleural effusions, left greater than right. Signer Name: Aileen Faustin MD Signed: 06/19/2019 5:38 AM Workstation Name: [id number]
--- NOTE | 2019-06-19 05:49 | Emergency Department Report ---
Blank Doc - Documentation Documentation: 29-year-old female with a history of sickle cell SS with c/o of pain secondary to sickle cell crisis. Pains of pain to left ribs for the past 4 days. Pain is constant, worse and movement, palpation, and deep inspiration. This is atypical for previous crisis patient taken Motrin without improvement. No history of PE/DVT, or control pill use. Denies cough and cold symptoms. [employer] is affiliated with [place]. Patient has reproducible pain to left-sided rib Orders placed EKG, labs, d-dimer elevated, CT chest angio ordered Patient to be further evaluated by oncoming physician
[2019-06-19] MEDS ORDERED: cefTRIAXone/NS 1 GM/50 ML 1 GM/50 ML BAG IV ONE (06:08)
[2019-06-19] MEDS ORDERED: AZITHROMYCIN 250 MG TAB PO ONE (06:08)
[2019-06-19] MEDS ORDERED: SODIUM CHLORIDE 0.9% 1000 ML 1,000 ML IV ONE (06:09)
[2019-06-19 06:20] LABS: Basophils % (Manual) 0 % (0.0-1.8); Eosinophils % (Manual) 0 % (0.0-4.3); Total Cells Counted 100
[2019-06-19 06:21] LABS: Anisocytosis 1+
[2019-06-19 06:22] LABS: Macrocytosis 1+; Platelet Estimate Consistent w Auto; Sickle Cells Few; Target Cells Rare
--- NOTE | 2019-06-19 06:31 | Cat Scan Report ---
CTA CHEST WITH IV CONTRAST INDICATION: Shortness of breath. Chest pain. TECHNIQUE: Axial CT images were obtained through the chest after injection of IV contrast. Coronal oblique 2-D reconstruction images were produced. 3 plane MIP reconstruction images were produced at an [employer] workstation. All CTs at this facility utilize dose reduction techniques including automated expos ure control, iterative reconstruction and weight based dosing when appropriate to reduce patient radi ation dose to as low as reasonable achievable. COMPARISON: Chest radiograph, 06/19/2019 FINDINGS: No filling defects are visualized within the central or segmental pulmonary arteries to suggest pulmo nary embolism. The heart is normal in size. Evaluation of the lung parenchyma demonstrates bilateral airspace disease left greater than right with a more focal area of left lower lobe consolidation. No large pleural effusion is identified. Limited imaging of the upper abdomen demonstrates no evidence of acute intra-abdominal process. Evalu ation of bony structures demonstrates no acute bony abnormality. IMPRESSION: 1. No evidence of pulmonary embolism. 2. Bilateral lower lobe airspace disease most compatible with pneumonia. Signer Name: Aileen Faustin MD Signed: 06/19/2019 6:27 AM Workstation Name: [id number]
--- NOTE | 2019-06-19 08:26 | Emergency Department Report ---
ED Chest Pain HPI - General Chief Complaint: Sickle Cell Crisis Stated Complaint: SICKLE CELL PAIN Time Seen by Provider: 06/19/19 04:12 Source: patient, EMS Mode of arrival: Stretcher Limitations: No Limitations - History of Present Illness Initial Comments: Hx sickle cell. Reports followed by hematology. Reports she does not remember her last visit to the ER for sickle cell. Complaint: chest pain -: Gradual, days(s) Onset: during rest Pain Location: left chest Pain Radiation: none Severity: mild Severity scale (0 -10): 3 Quality: aching Consistency: intermittent Improves With: nothing Worsens With: nothing re: denies: nausea, vomting, diaphoresis, dyspnea, sense of impending doom Other Symptoms: cough. denies: fever, syncope, rash, acid taste in mouth, leg swelling, palpitations, burping - Related Data Previous Rx's Medication Instructions Recorded Last Taken Type Cyclobenzaprine [Flexeril 10mg] 10 mg PO TID PRN #20 tablet 12/11/13 Unknown Rx Ibuprofen [Motrin 800 MG tab] 800 mg PO Q8H PRN #30 tablet 12/11/13 Unknown Rx HYDROcodone/APAP 5-325 [Racine 1 each PO Q6HR PRN #20 tablet 07/15/14 Unknown Rx 5-325 mg TAB] Metoclopramide HCl [Reglan TAB] 5 mg PO TIDAC PRN #10 tablet 01/08/17 Unknown Rx Naproxen [Naprosyn TAB] 500 mg PO BID PRN #25 tablet 01/08/17 Unknown Rx Ibuprofen [Motrin 800 MG tab] 800 mg PO Q6HR PRN #30 tablet 08/27/17 Unknown Rx Ciprofloxacin HCl [Ciprofloxacin 500 mg PO Q12HR #20 tab 06/14/18 Unknown Rx TAB] Ibuprofen [Motrin] 800 mg PO Q8HR PRN #20 tablet 06/14/18 Unknown Rx Tramadol HCl [Ultram] 50 mg PO BID PRN #10 tablet 06/14/18 Unknown Rx HYDROcodone/APAP 7.5-325 [Racine 1 each PO Q6HR PRN #15 tablet 09/25/18 Unknown Rx 7.5/325] Ketorolac [Toradol] 10 mg PO Q6H PRN #20 tablet 09/25/18 Unknown Rx Dicyclomine [Bentyl] 10 mg PO BID #20 capsule 11/02/18 Unknown Rx Famotidine [Pepcid] 20 mg PO BID #30 tablet 11/02/18 Unknown Rx Ibuprofen [Motrin 800 MG tab] 800 mg PO Q8HR PRN #30 tablet 01/16/19 Unknown Rx cephALEXin [Keflex] 500 mg PO Q8HR 10 Days #30 cap 01/16/19 Unknown Rx Cyclobenzaprine [Flexeril] 10 mg PO QHS PRN #10 tablet 02/06/19 Unknown Rx Ibuprofen [Motrin] 600 mg PO Q8H PRN #20 tablet 02/06/19 Unknown Rx levoFLOXacin [Levaquin] 750 mg PO QDAY #5 tablet 06/19/19 Unknown Rx Allergies Allergy/AdvReac Type Severity Reaction Status Date / Time No Known Allergies Allergy Verified 12/11/13 10:58 Heart Score - HEART Score History: Slightly suspicious EKG: Non-specific Age: < 45 Risk factors: No known risk factors Troponin: < normal limit (Not accurate as patient did not have a troponin result. Required section to complete the chart) HEART Score: 1 ED Review of Systems ROS: Stated complaint: SICKLE CELL PAIN Other details as noted in HPI Other: GENERAL: No weight change, fatigue, fever, chills, or night sweats SKIN: No changes in skin or hair, no itching, no rashes, no jaundice HEAD: No trauma EYES: No blurriness, tearing, itching, acute visual loss, conjunctival discoloration, or scleral icterus EARS: No hearing loss, tinnitus, vertigo, or earache NOSE: No rhinorrhea, stuffiness, sneezing, itching, or epistaxis MOUTH: No bleeding gums, hoarseness, sore throat, or swelling CARDIAC: Chest pain. No new murmur, palpitations, dyspnea on exertion, ort hopnea, PND, or edema RESPIRATORY: Cough. No shortness of breath, wheeze, sputum production, hemopt ysis GI: No abdominal pain, nausea, vomiting, dysphagia, diarrhea, constipation, hematemesis, melena, hematochezia URINARY: No frequency, urgency, polyuria, dysuria, hematuria, or incontinence MUSCULOSKELETAL: No muscle weakness, joint stiffness, decrease in range of motion, redness, swelling NEUROLOGIC: No headache, syncope, loss of sensation, numbness, tingling, tremors, weakness, paralysis, seizures HEMATOLOGIC: No anemia, easy bruising, bleeding, petechiae, or purpura ENDOCRINE: No hot or cold intolerance, sweating, polyuria, polydipsia or, polyphagia no thyroid problems PSYCHIATRIC: No change in mood, no anxiety, no depression ED Past Medical Hx - Past Medical History Previous Medical History?: Yes Hx Sickle Cell Disease: Yes Additional medical history: Sickle cell anemia - Surgical History Past Surgical History?: No - Social History Smoking Status: Never Smoker Substance Use Type: None - Medications Home Medications: Home Medications Medication Instructions Recorded Confirmed Last Taken Type Cyclobenzaprine [Flexeril 10mg] 10 mg PO TID PRN #20 tablet 12/11/13 Unknown Rx Ibuprofen [Motrin 800 MG tab] 800 mg PO Q8H PRN #30 tablet 12/11/13 Unknown Rx HYDROcodone/APAP 5-325 [Racine 1 each PO Q6HR PRN #20 tablet 07/15/14 Unknown Rx 5-325 mg TAB] Metoclopramide HCl [Reglan TAB] 5 mg PO TIDAC PRN #10 tablet 01/08/17 Unknown Rx Naproxen [Naprosyn TAB] 500 mg PO BID PRN #25 tablet 01/08/17 Unknown Rx Ibuprofen [Motrin 800 MG tab] 800 mg PO Q6HR PRN #30 tablet 08/27/17 Unknown Rx Ciprofloxacin HCl [Ciprofloxacin 500 mg PO Q12HR #20 tab 06/14/18 Unknown Rx TAB] Ibuprofen [Motrin] 800 mg PO Q8HR PRN #20 tablet 06/14/18 Unknown Rx Tramadol HCl [Ultram] 50 mg PO BID PRN #10 tablet 06/14/18 Unknown Rx HYDROcodone/APAP 7.5-325 [Racine 1 each PO Q6HR PRN #15 tablet 09/25/18 Unknown Rx 7.5/325] Ketorolac [Toradol] 10 mg PO Q6H PRN #20 tablet 09/25/18 Unknown Rx Dicyclomine [Bentyl] 10 mg PO BID #20 capsule 11/02/18 Unknown Rx Famotidine [Pepcid] 20 mg PO BID #30 tablet 11/02/18 Unknown Rx Ibuprofen [Motrin 800 MG tab] 800 mg PO Q8HR PRN #30 tablet 01/16/19 Unknown Rx cephALEXin [Keflex] 500 mg PO Q8HR 10 Days #30 cap 01/16/19 Unknown Rx Cyclobenzaprine [Flexeril] 10 mg PO QHS PRN #10 tablet 02/06/19 Unknown Rx Ibuprofen [Motrin] 600 mg PO Q8H PRN #20 tablet 02/06/19 Unknown Rx levoFLOXacin [Levaquin] 750 mg PO QDAY #5 tablet 06/19/19 Unknown Rx ED Physical Exam - General Limitations: No Limitations - Other Other exam information: GENERAL: Patient in no acute distress HEAD: Normocephalic, atraumatic EYES: PERRLA, EOM intact, no scleral icterus, no conjunctival hemorrhage, visual langley and acuity wnl NOSE: No tenderness, discharge, sinus tenderness MOUTH: No erythema, bleeding, exudate HEART: Regular rate and rhythm, no murmur, S1-S2 are auscultated, no edema, pulses are symmetric LUNGS: Bibasilar rales. No respiratory distress. Bilateral breath sounds, No tachypnea, No retractions, No wheezing, rhonchi ABDOMEN: Normal bowel sounds, abdomen soft, no tenderness, no rebound, no guarding, no distention, no masses, no CVA tenderness MUSCULOSKELETAL: Normal joint range of motion, no redness, no swelling, no te nderness NEUROLOGIC: GCS 15, Alert and Oriented x3, Cranial nerves intact, normal sensation, normal strength, no cerebellar deficit, NIHSS 0 PSYCHIATRIC: No homicidal or suicidal ideation, no anxiety, no depression, no hallucinations SKIN: Skin is warm and dry, no wounds, no rashes ED Course Vital Signs 06/19/19 06/19/19 06/19/19 03:45 03:49 03:52 Temperature 99.5 F Pulse Rate 95 H Respiratory 20 20 Rate Blood Pressure 118/65 118/65 O2 Sat by Pulse 96 96 96 Oximetry 06/19/19 06/19/19 06/19/19 04:00 05:00 05:31 Temperature Pulse Rate 96 H 94 H Respiratory 35 H 18 27 H Rate Blood Pressure 114/59 116/71 116/71 O2 Sat by Pulse 100 94 94 Oximetry 06/19/19 07:31 Temperature Pulse Rate 84 Respiratory 16 Rate Blood Pressure 125/64 O2 Sat by Pulse 96 Oximetry ED Medical Decision Making - Lab Data Result diagrams: 06/19/19 04:28 06/19/19 04:28 Laboratory Results - last 24 hr 06/19/19 06/19/19 06/19/19 04:28 04:28 04:28 WBC 23.2 H RBC 4.93 Hgb 12.3 Hct 35.2 MCV 71 L MCH 25 L MCHC 35 H RDW 18.8 H Plt Count 335 Add Manual Diff Complete Total Counted 100 Seg Neuts % (Manual) 86.0 H Band Neutrophils % 0 Lymphocytes % (Manual) 10.0 L Reactive Lymphs % (Man) 0 Monocytes % (Manual) 4.0 Eosinophils % (Manual) 0 Basophils % (Manual) 0 Metamyelocytes % 0 Myelocytes % 0 Promyelocytes % 0 Blast Cells % 0 Nucleated RBC % Not Reportable Seg Neutrophils # Man 20.0 H Band Neutrophils # 0.0 Lymphocytes # (Manual) 2.3 Abs React Lymphs (Man) 0.0 Monocytes # (Manual) 0.9 H Eosinophils # (Manual) 0.0 Basophils # (Manual) 0.0 Metamyelocytes # 0.0 Myelocytes # 0.0 Promyelocytes # 0.0 Blast Cells # 0.0 WBC Morphology Not Reportable Hypersegmented Neuts Not Reportable Hyposegmented Neuts Not Reportable Hypogranular Neuts Not Reportable Smudge Cells Not Reportable Toxic Granulation Not Reportable Toxic Vacuolation Not Reportable Dohle Bodies Not Reportable Pelger-Huet Anomaly Not Reportable Miguel Rods Not Reportable Platelet Estimate Consistent w auto Clumped Platelets Not Reportable Plt Clumps, EDTA Not Reportable Large Platelets Not Reportable Giant Platelets Not Reportable Platelet Satelliting Not Reportable Plt Morphology Comment Not Reportable RBC Morphology Not Reportable Dimorphic RBCs Not Reportable Polychromasia Few Hypochromasia Not Reportable Poikilocytosis Not Reportable Anisocytosis 1+ Microcytosis Few Macrocytosis 1+ Spherocytes Not Reportable Pappenheimer Bodies Not Reportable Sickle Cells Few Target Cells Rare Tear Drop Cells Not Reportable Ovalocytes Not Reportable Helmet Cells Not Reportable Mata-Pioche Bodies Not Reportable [place] Rings Not Reportable Gonzalo Cells Not Reportable Bite Cells Not Reportable Crenated Cell Not Reportable Elliptocytes Not Reportable Acanthocytes (Spur) Not Reportable Rouleaux Not Reportable Hemoglobin C Crystals Not Reportable Schistocytes Not Reportable Malaria parasites Not Reportable Percent Retic 3.31 H Shay Bodies Not Reportable Hem Pathologist Commnt No D-Dimer 921.66 H Sodium 136 L Potassium 4.1 Chloride 102.1 Carbon Dioxide 21 L Anion Gap 17 BUN 9 Creatinine 0.4 L Estimated GFR > 60 BUN/Creatinine Ratio 23 Glucose 125 H Lactic Acid Calcium 9.0 Total Bilirubin 1.50 H AST 20 ALT 24 Alkaline Phosphatase 62 Total Protein 7.2 Albumin 3.9 Albumin/Globulin Ratio 1.2 HCG, Qual 06/19/19 06/19/19 04:28 06:44 WBC RBC Hgb Hct MCV MCH MCHC RDW Plt Count Add Manual Diff Total Counted Seg Neuts % (Manual) Band Neutrophils % Lymphocytes % (Manual) Reactive Lymphs % (Man) Monocytes % (Manual) Eosinophils % (Manual) Basophils % (Manual) Metamyelocytes % Myelocytes % Promyelocytes % Blast Cells % Nucleated RBC % Seg Neutrophils # Man Band Neutrophils # Lymphocytes # (Manual) Abs React Lymphs (Man) Monocytes # (Manual) Eosinophils # (Manual) Basophils # (Manual) Metamyelocytes # Myelocytes # Promyelocytes # Blast Cells # WBC Morphology Hypersegmented Neuts Hyposegmented Neuts Hypogranular Neuts Smudge Cells Toxic Granulation Toxic Vacuolation Dohle Bodies Pelger-Huet Anomaly Miguel Rods Platelet Estimate Clumped Platelets Plt Clumps, EDTA Large Platelets Giant Platelets Platelet Satelliting Plt Morphology Comment RBC Morphology Dimorphic RBCs Polychromasia Hypochromasia Poikilocytosis Anisocytosis Microcytosis Macrocytosis Spherocytes Pappenheimer Bodies Sickle Cells Target Cells Tear Drop Cells Ovalocytes Helmet Cells Mata-Pioche Bodies [place] Rings [place] Cells Bite Cells Crenated Cell Elliptocytes Acanthocytes (Spur) Rouleaux Hemoglobin C Crystals Schistocytes Malaria parasites Percent Retic Shay Bodies Hem Pathologist Commnt D-Dimer Sodium Potassium Chloride Carbon Dioxide Anion Gap BUN Creatinine Estimated GFR BUN/Creatinine Ratio Glucose Lactic Acid 0.90 Calcium Total Bilirubin AST ALT Alkaline Phosphatase Total Protein Albumin Albumin/Globulin Ratio HCG, Qual Negative - EKG Data When compared to previous EKG there are: no significant change - Radiology Data Radiology results: report reviewed - Medical Decision Making Patient comfortable. Reports symptom improvement. Updated with results. Plan discharge with outpatient follow up. Return if any worsening. Critical care attestation.: If time is entered above; I have spent that time in minutes in the direct care of this critically ill patient, excluding procedure time. ED Disposition Clinical Impression: Sickle cell pain crisis Pneumonia Qualifiers: Pneumonia type: due to unspecified organism Laterality: unspecified laterality Lung location: unspecified part of lung Qualified Code(s): J18.9 - Pneumonia, unspecified organism Disposition: TO HOME OR SELFCARE Is pt being admited?: No Condition: Stable Instructions: Sickle Cell Crisis (ED), Community-acquired Pneumonia (ED) Prescriptions: levoFLOXacin [Levaquin] 750 mg PO QDAY #5 tablet Referrals: PRIMARY CARE, [Primary Care Provider] - 2-3 Days Time of Disposition: 08:23
[2019-06-19 09:11] VITALS: BP 116/77
== END 2019-06-19 09:11 | disposition home or self-care (01) ==
LOC: ED 03:30
DX: D57.00 Hb-SS disease with crisis, unspecified (principal); J18.9 Pneumonia, unspecified organism; Z79.899 Other long term (current) drug therapy
CPT/HCPCS: 36415; 71045; 71275; 80053; 82140; 84703; 85007; 85025; 85045; 85379; 87040; 93005; 93010; 96365; 96375; 99285; J0696; J1170; J1200; J1885; J2405; J7030; Q9967

== ENCOUNTER 2021-03-26 23:01 | Emergency (ER) | payer SELFPAY ==
--- NOTE | 2021-03-26 23:22 | Event Note ---
ED Screening Note Date of service: 03/26/21 Time: 23:21 ED Screening Note: 30-year-old female patient with history of sickle cell disease presents emergency department with complaints of left-sided abdominal pain starting today. General: Awake, appropriately interactive. Sitting in wheelchair, moaning, appears uncomfortable. Neck: Supple. Full range of motion intact. Cardiovascular: Normal peripheral perfusion. Pulmonary: No respiratory distress. Patient is speaking normally without use of accessory muscles. Skin: No apparent rashes or lesions. Neurological: No facial asymmetry. Speech is clear. Follows commands. Patient is alert and oriented. Musculoskeletal: Moves all four extremities spontaneously with normal range of motion. Psych: Cooperative. Appropriate mood and affect. Labs ordered. Imaging deferred to additional ED providers following full history and complete physical exam. I have greeted and performed a focused rapid initial assessment of this patient. A comprehensive ED assessment and evaluation of the patient, analysis of all test results, and completion of the medical decision-making process will be conducted by additional ED providers. This initial assessment/diagnostic orders/clinical plan/treatment(s) is/are subject to change based on patients health status, clinical progression and re-assessment. Further treatment and workup at subsequent clinical provider's discretion. Patient/guardian urged not to elope from the ED as their condition may be serious if not clinically assessed and managed.
[2021-03-26] MEDS ORDERED: fentaNYL 100 MCG/2 ML INJ IV ONE (23:29)
[2021-03-26] MEDS ORDERED: SODIUM CHLORIDE 0.9% 1000 ML 1,000 ML IV ONE (23:29)
[2021-03-26] MEDS ORDERED: ONDANSETRON 4 MG/2 ML INJ IV ONE (23:29)
--- NOTE | 2021-03-26 23:36 | Emergency Department Report ---
HPI - General Chief Complaint: Abdominal Pain Time Seen by Provider: 03/26/21 23:20 - HPI HPI: Reassessment 6 The patient is a 30-year-old female present with chief complaint of abdominal pain. Patient states this morning she developed suprapubic/infraumbilical abdominal pain that radiates to her left upper quadrant. Patient describes the pain as stabbing and intermittent in nature. Patient denies dysuria, hematuria or vaginal discharge. Patient denies history of fever. Patient denies nausea vomiting or diarrhea. Patient states her LMP was 03/23/2021 and was within normal limits. Patient currently gives her pain a score of 10/10 ED Past Medical Hx - Past Medical History Hx Sickle Cell Disease: Yes Additional medical history: Sickle cell anemia - Surgical History Past Surgical History?: No - Social History Smoking Status: Never Smoker Substance Use Type: None - Medications Home Medications: Home Medications Medication Instructions Recorded Confirmed Last Taken Type Cyclobenzaprine [Flexeril 10mg] 10 mg PO TID PRN #20 tablet 12/11/13 Unknown Rx Ibuprofen [Motrin 800 MG tab] 800 mg PO Q8H PRN #30 tablet 12/11/13 Unknown Rx HYDROcodone/APAP 5-325 [Fannin 1 each PO Q6HR PRN #20 tablet 07/15/14 Unknown Rx 5-325 mg TAB] Metoclopramide HCl [Reglan TAB] 5 mg PO TIDAC PRN #10 tablet 01/08/17 Unknown Rx Naproxen [Naprosyn TAB] 500 mg PO BID PRN #25 tablet 01/08/17 Unknown Rx Ibuprofen [Motrin 800 MG tab] 800 mg PO Q6HR PRN #30 tablet 08/27/17 Unknown Rx Ciprofloxacin HCl [Ciprofloxacin 500 mg PO Q12HR #20 tab 06/14/18 Unknown Rx TAB] Ibuprofen [Motrin] 800 mg PO Q8HR PRN #20 tablet 06/14/18 Unknown Rx Tramadol HCl [Ultram] 50 mg PO BID PRN #10 tablet 06/14/18 Unknown Rx HYDROcodone/APAP 7.5-325 [Fannin 1 each PO Q6HR PRN #15 tablet 09/25/18 Unknown Rx 7.5/325] Ketorolac [Toradol] 10 mg PO Q6H PRN #20 tablet 09/25/18 Unknown Rx Dicyclomine [Bentyl] 10 mg PO BID #20 capsule 11/02/18 Unknown Rx Famotidine [Pepcid] 20 mg PO BID #30 tablet 11/02/18 Unknown Rx Ibuprofen [Motrin 800 MG tab] 800 mg PO Q8HR PRN #30 tablet 01/16/19 Unknown Rx cephALEXin [Keflex] 500 mg PO Q8HR 10 Days #30 cap 01/16/19 Unknown Rx Cyclobenzaprine [Flexeril] 10 mg PO QHS PRN #10 tablet 02/06/19 Unknown Rx Ibuprofen [Motrin] 600 mg PO Q8H PRN #20 tablet 02/06/19 Unknown Rx levoFLOXacin [Levaquin] 750 mg PO QDAY #5 tablet 06/19/19 Unknown Rx HYDROcodone/APAP 5-325 [Fannin 1 - 2 each PO Q6HR PRN #14 tablet 03/27/21 Unknown Rx 5/325] cephALEXin [Keflex] 500 mg PO Q12HR 3 Days #6 cap 03/27/21 Unknown Rx ED Review of Systems ROS: Stated complaint: STOMACH PAIN SICKLE CELL Other details as noted in HPI Physical Exam - Physical Exam Vital Signs: Vital Signs 03/26/21 23:11 Temperature 98.4 F Pulse Rate 82 Respiratory 20 Rate Blood Pressure 129/76 O2 Sat by Pulse 97 Oximetry Physical Exam: GENERAL: The patient is well-developed well-nourished female lying on stretcher not appearing to be in acute distress. [] HEENT: Normocephalic. Atraumatic. Extraocular motions are intact. Patient has moist mucous membranes. NECK: Supple. Trachea midline CHEST/LUNGS: Clear to auscultation. There is no respiratory distress noted. HEART/CARDIOVASCULAR: Regular. There is no tachycardia. There is no gallop rub or murmur. ABDOMEN: Abdomen is soft, with tenderness to palpation in the infraumbilical region, left lower quadrant and left upper quadrant. No rebound or guard. Patient has normal bowel sounds. There is no abdominal distention. SKIN: There is no rash. There is no edema. There is no diaphoresis. NEURO: The patient is awake, alert, and oriented. The patient is cooperative. The patient has no focal neurologic deficits. The patient has normal speech. GCS 15 MUSCULOSKELETAL: There is no evidence of acute injury. ED Course Vital Signs 03/26/21 23:11 Temperature 98.4 F Pulse Rate 82 Respiratory 20 Rate Blood Pressure 129/76 O2 Sat by Pulse 97 Oximetry ED Medical Decision Making - Lab Data Result diagrams: 03/26/21 23:28 03/26/21 23:28 - Radiology Data Radiology results: report reviewed (CT abdomen pelvis), image reviewed (CT abdomen pelvis) [facility] [address] [place] [address] Cat Scan Report Signed Patient: LUCAS RICKS MR#: [id number] : 1990 Acct:[id number] Age/Sex: 30 / F ADM Date: 03/26/21 Loc: ED Attending Dr: Ordering Physician: KATHARINE GONZALEZ MD Date of Service: 03/26/21 Procedure(s): CT abdomen pelvis w con Accession Number(s): [id number] cc: KATHARINE GONZALEZ MD CT ABDOMEN AND PELVIS WITH CONTRAST INDICATION / CLINICAL INFORMATION: Lower abd pain radiating to LUQ, sickle cell. TECHNIQUE: Axial CT images were obtained through the abdomen and pelvis after 100 cc of Omnipaque [address] scans at this location are performed using CT dose reduction for Plovgh by means of automated exposure control. COMPARISON: 06/14/2018 FINDINGS: LOWER CHEST: Atelectasis versus scarring in the bilateral lung bases. AORTA / ARTERIES: No significant abnormality. IVC / VEINS: No significant abnormality. LYMPH NODES: No significant adenopathy. COLON: No significant abnormality. APPENDIX: No significant abnormality. STOMACH / SMALL BOWEL: No significant abnormality. PERITONEUM: No free fluid. No free air. No fluid collection. LIVER: No significant abnormality. GALLBLADDER: No significant abnormality. BILE DUCTS: No significant abnormality. PANCREAS: No significant abnormality. SPLEEN: No significant abnormality. ADRENALS: No significant abnormality. RIGHT KIDNEY / URETER: No significant abnormality. LEFT KIDNEY / URETER: No significant abnormality. URINARY BLADDER: No significant abnormality. REPRODUCTIVE ORGANS: No significant abnormality. SKELETAL SYSTEM: There is bilateral hip dysplasia with degeneration, not significant change from prior CT. There are H shaped vertebrae in the lower lumbar spine likely secondary to sickle cell. ADDITIONAL FINDINGS: None. IMPRESSION: 1. No acute intra-abdominal intrapelvic pathology. 2. Other findings as above. Signer Name: Thang Vines DO Signed: 03/27/2021 1:58 AM Workstation Name: [id number] Transcribed By: MARCO ANTONIO Dictated By: THANG VINES DO Electronically Authenticated By: THANG GUZMAN DO Signed Date/Time: 03/27/21157 DD/ 9 TD/TT: Print Cancel - Differential Diagnosis Splenic infarct, gastritis, UTI, pyelonephritis, peptic ulcer disease, panc Critical care attestation.: If time is entered above; I have spent that time in minutes in the direct care of this critically ill patient, excluding procedure time. ED Disposition Clinical Impression: Acute abdominal pain, UTI (urinary tract infection) Disposition: HOME / SELF CARE / HOMELESS Is pt being admited?: No Does the pt Need Aspirin: No Condition: Stable Instructions: Urinary Tract Infection, Adult, Ofwy-ah-[id number], Abdominal Pain, Adult, Enow-hm-[id number], Abdominal Pain (ED) Additional Instructions: Return to the emergency department should you develop worsening symptoms, inability to tolerate food or liquids, high fever or any other concerns Prescriptions: cephALEXin [Keflex] 500 mg PO Q12HR 3 Days #6 cap HYDROcodone/APAP 5-325 [Fannin 5/325] 1 - 2 each PO Q6HR PRN #14 tablet PRN Reason: Pain Referrals: PATRICE ROMAN DO [Staff Physician] - 3-5 Days (Dr. Roman is a primary physician and case maker. Please follow-up with him for further evaluation)
[2021-03-26 23:55] LABS: Hematocrit 34.4 % (30.3-42.9); Hemoglobin 11.9 gm/dl (10.1-14.3); Mean Corpuscular HGB Conc 35 % (30-34); Platelet Count 392 K/mm3 (140-440); Red Blood Count 5.03 M/mm3 (3.65-5.03)
[2021-03-26 23:59] LABS: Mean Corpuscular Volume 68 fl (79-97); Red Cell Distribution Width 20.5 % (13.2-15.2)
[2021-03-27 00:04] LABS: INR 0.89 (0.87-1.13)
[2021-03-27 00:05] LABS: Partial Thromboplastin Time 26.4 Sec. (24.2-36.6)
[2021-03-27 00:12] LABS: Alanine Aminotransferase 23 units/L (7-56); Albumin 4.4 g/dL (3.9-5); Blood Urea Nitrogen 10 mg/dL (7-17); Calcium 9.6 mg/dL (8.4-10.2); Hemolysis Index 0
[2021-03-27 00:16] LABS: BUN/Creatinine Ratio 17
[2021-03-27 01:59] LABS: Total Cells Counted 100
[2021-03-27 02:00] LABS: Anisocytosis 1+; Hypochromasia 1+; Platelet Estimate Consistent w Auto; Target Cells 1+
--- NOTE | 2021-03-27 02:02 | Cat Scan Report ---
CT ABDOMEN AND PELVIS WITH CONTRAST INDICATION / CLINICAL INFORMATION: Lower abd pain radiating to LUQ, sickle cell. TECHNIQUE: Axial CT images were obtained through the abdomen and pelvis after 100 cc of Omnipaque [address] scans at this location are performed using CT dose reduction for ALARA by means of automated exposure control. COMPARISON: 06/14/2018 FINDINGS: LOWER CHEST: Atelectasis versus scarring in the bilateral lung bases. AORTA / ARTERIES: No significant abnormality. IVC / VEINS: No significant abnormality. LYMPH NODES: No significant adenopathy. COLON: No significant abnormality. APPENDIX: No significant abnormality. STOMACH / SMALL BOWEL: No significant abnormality. PERITONEUM: No free fluid. No free air. No fluid collection. LIVER: No significant abnormality. GALLBLADDER: No significant abnormality. BILE DUCTS: No significant abnormality. PANCREAS: No significant abnormality. SPLEEN: No significant abnormality. ADRENALS: No significant abnormality. RIGHT KIDNEY / URETER: No significant abnormality. LEFT KIDNEY / URETER: No significant abnormality. URINARY BLADDER: No significant abnormality. REPRODUCTIVE ORGANS: No significant abnormality. SKELETAL SYSTEM: There is bilateral hip dysplasia with degeneration, not significant change from prio r CT. There are H shaped vertebrae in the lower lumbar spine likely secondary to sickle cell. ADDITIONAL FINDINGS: None. IMPRESSION: 1. No acute intra-abdominal intrapelvic pathology. 2. Other findings as above. Signer Name: Thang Trejo DO Signed: 03/27/2021 1:58 AM Workstation Name: [id number]
[2021-03-27] MEDS ORDERED: fentaNYL 100 MCG/2 ML INJ IV ONE (02:26)
[2021-03-27 03:17] LABS: Bacteria,Urine 1+ /HPF (Negative); Bilirubin,Urine NEG (Negative); Blood,Urine LG (Negative); Color,Urine Straw (Yellow); Mucus,Urine FEW /HPF; Protein,Urine <15 mg/dL mg/dL (Negative); Urobilinogen,Urine < 2.0 mg/dL (<2.0)
[2021-03-27 04:49] VITALS: BP 115/75
== END 2021-03-27 04:50 | disposition home or self-care (01) ==
LOC: ED 23:01
DX: N39.0 Urinary tract infection, site not specified (principal); R10.12 Left upper quadrant pain; Z98.890 Other specified postprocedural states; Z79.899 Other long term (current) drug therapy
CPT/HCPCS: 36415; 74177; 80053; 81001; 83690; 84703; 85007; 85025; 85045; 85610; 85730; 87086; 96361; 96374; 96375; 96376; 99284; J2405; J3010; J7030; Q9967